=== PATIENT | female | born 1975 | race Caucasian/White ===

== ENCOUNTER 2022-11-08 13:12 | Emergency (ER) | payer OTHER ==
[2022-11-08] MEDS ORDERED: Sodium Chloride 0.9% 1,000 ML ONE (13:37)
[2022-11-08] MEDS ORDERED: Prochlorperazine 10 MG/2 ML VIAL ONE (13:37)
[2022-11-08 14:07] LABS: #Basophils 0.1 thou/uL (0.0-0.2); #Eosinphils 0.1 thou/uL (0.0-0.7); #Monocytes 0.5 thou/uL (0.11-0.59); #Neutrophils 5.1 thou/uL (1.40-6.50); %Basophils 0.7 % (0.0-1.0); %Eosinophils 1.4 % (0.0-10.0); %Lymphocytes 25.7 % (21.0-51.0); %Monocytes 5.9 % (0.0-10.0); %Neutrophils 66.4 % (42.0-75.0); Hemoglobin 14.3 g/dL (12.0-16.0); Mean Corpuscular HGB CONC 33.3 g/dL (32.0-36.0); Mean Corpuscular Hemoglobin 31.5 pg (27.0-31.0); Mean Corpuscular Volume 94.8 fl (78.0-98.0); Mean Platelet Volume 10.3 fL (7.4-10.4); Platelet Count 219 10x3/uL (130-400); RBC Distribution Width 12.7 % (11.5-14.5); Red Blood Cell (RBC) Count 4.54 mill/uL (4.20-5.40); White Blood Cell (WBC) Count 7.7 10x3/uL (4.8-10.8)
[2022-11-08 14:18] LABS: Bilirubin Negative (Negative); Blood, Urine Negative (Negative); Glucose, Urine (Dipstick) Negative (Negative); Ketone, Urine Negative (Negative); Leukocyte Negative (Negative); Nitrite Negative (Negative); Protein, Urine (Dipstick) Negative (Neg-Trace); Urobilinogen 0.2 mg/dL (Less than 2); pH, Urine 6.5 (5.0-9.0)
[2022-11-08 14:19] LABS: ALT (SGPT) 7 U/L (8-55); AST (SGOT) 9 U/L (5-34); Albumin 4.1 g/dL (3.5-5.0); Alkaline Phosphatase 84 U/L (40-110); Anion Gap 11 mmol/L (10-20); BUN (Urea Nitrogen) 6 mg/dL (7.0-18.7); Bilirubin, Total 0.3 mg/dL (0.2-1.2); Calc. Creatinine Clearance 0 mL/min (70-130); Calcium 9.3 mg/dL (7.8-10.44); Carbon Dioxide 27 mmol/L (22-29); Chloride 105 mmol/L (98-107); Estimated GFR 97; Globulin 2.1 g/dL (2.4-3.5); Glucose 107 mg/dL (70-105); Potassium 3.3 mmol/L (3.5-5.1); Protein, Total 6.2 g/dL (6.0-8.3); Sodium 140 mmol/L (136-145)
[2022-11-08 14:20] LABS: CAUTI Indications for Culture Dysuria,urgency,freq; Clarity Hazy (Clear); RBC/HPF 0-3 HPF (0-3)
[2022-11-08 14:21] LABS: Bacteria/HPF 1+ HPF (None Seen); Pregnancy Test - Urine (BHCG) Negative (Negative); Pregu Control Background? CLEAR/WHITE (CLR/WHITE); Pregu Control Bar Appear? YES (CONTROL BAR); WBC/HPF 0-3 HPF (0-3)
[2022-11-08 14:22] LABS: Urine Culture Reflex No No
[2022-11-08 14:24] LABS: Amphetamine Detected (NotDetected); Barbiturates Screen Not Detected (NotDetected); Benzodiazepine Screen Not Detected (NotDetected); Cocaine Metabolite Screen Not Detected (NotDetected); Methadone Not Detected (NotDetected); Methamphetamine Not Detected (NotDetected); Opiate Screen Not Detected (NotDetected); Oxycodone Screen Not Detected (NotDetected); Phencyclidine (PCP) Not Detected (NotDetected); THC/Cannabinoid Screen Detected (NotDetected); Tricyclic Screen Not Detected (NotDetected)
[2022-11-08] MEDS ORDERED: Potassium Chloride 20 MEQ TAB ONE (14:27)
== END 2022-11-08 14:32 | disposition home or self-care (01) ==
LOC: MADERS 13:12
DX: G43.909 Migraine, unspecified, not intractable, without status migrainosus (principal); E87.6 Hypokalemia; F17.210 Nicotine dependence, cigarettes, uncomplicated
CPT/HCPCS: 80053; 80306; 81001; 81025; 85025; 96361; 96374; J0780; J7050

== ENCOUNTER 2023-03-17 22:50 | Emergency (ER) | payer SELFPAY ==
[2023-03-17] MEDS ORDERED: Ketorolac Tromethamine 60 MG/2 ML VIAL ONE (23:13)
[2023-03-17] MEDS ORDERED: Orphenadrine Citrate 60 MG/2 ML VIAL ONE (23:13)
== END 2023-03-18 01:05 | disposition home or self-care (01) ==
LOC: MADERS 22:50
DX: S39.012A Strain of muscle, fascia and tendon of lower back, initial encounter (principal); F17.210 Nicotine dependence, cigarettes, uncomplicated; W01.0XXA Fall on same level from slipping, tripping and stumbling without subsequent striking against object, initial encounter
CPT/HCPCS: 71045; 72072; 72100; 96372; J1885; J2360